=== PATIENT | male | born 1975 | race Asian ===

== ENCOUNTER → 2016-05-03 | Day surgery (SDC) | payer OTHER ==
[~2016-05-03] VITALS: Ht 154.9 cm; Wt 52.7 kg
[~2016-05-03] MED LIST: PROPOFOL 40 ML ONE; ZOC10 PO
[2016-05-03 14:36] VITALS: Ht 154.9 cm; Wt 52.7 kg
[2016-05-03 15:12] VITALS: BP 132/77; PULSE 79; RESP 16
[2016-05-03 15:55] VITALS: BP 108/64; PULSE 81; RESP 16
[2016-05-03 16:33] VITALS: BP 134/88; PULSE 71; RESP 18
--- NOTE | 2016-05-04 15:23 | GILP ---
DATE OF PROCEDURE: 05/04/2016 PROCEDURE: Colonoscopy with polyp ablation. PREMEDICATION: Monitored anesthesia care by anesthesiologist. SURGEON: Sridevi Hyatt MD. INSTRUMENT USED: Olympus colonoscope. PREPARATION: Adequate. TECHNIQUE: After informed consent, with the patient/relatives understanding the procedure, its indic ations potential risks and complications, including but not limited to: allergic reaction, bleeding, perforation, infection, missed lesions and after all pertinent questions were answered to the patie nt's satisfaction, the patient/relatives signed the witnessed informed consent. Following this, premedication was administered slowly IV push by under careful cardiovascular and re spiratory monitoring with pulse oximetry, automatic blood pressure and electronic device monitor. Once the sedativ e effect was achieved, the patient was placed in the left lateral decubitus position, digital rectal examination was performed. The colonoscope was then introduced and advanced under visual control th roughout all segments of the colon including: the rectum, sigmoid, descending colon, splenic flexure , transverse colon, hepatic flexure, ascending colon and finally reaching the cecum which was clearl y identified by transillumination, finger indentation and the ileocecal valve. Careful examination o f the mucosa of the lower gastrointestinal tract both on insertion as well as withdrawal of the inst rument disclosed the following findings: Rectal Examination: No evidence of perirectal disease, no masses. Colonic Mucosa: The colonic mucosa is remarkable for the presence of a 3 mm polyp in the transvers e colon which was completely ablated with biopsy forceps. There is a 4 mm polyp in the proximal asc ending colon which was also ablated with biopsy forceps. The remainder of the colon and mucosa unre markable. The ileocecal valve was clearly identified and appears unremarkable. The instrument was then withdrawn. We reexamined the mucosa in detail and no additional abnormalities were noted with the exception of moderate sized internal hemorrhoids. IMPRESSION: 1. A 3 mm polyp in the transverse colon ablated. 2. A 4 mm polyp in the proximal ascending colon ablated. 3. Moderate size internal hemorrhoids. PLAN: The patient will be followed up as an outpatient. Pathology will be reviewed surveillance co lonoscopy in 5 years is recommended. Annual Hemoccult stool testing is also recommended. Dictated By: SRIDEVI HYATT MS/KAHLIL Conf#: [id number] DID#: [id number]
--- NOTE | 2016-05-04 15:32 | GILP ---
DATE OF PROCEDURE: 05/04/2016 PROCEDURE: Esophagogastroduodenoscopy with biopsies. SURGEON: Sridevi Hyatt MD BRIEF HISTORY AND INDICATIONS: The patient is being evaluated for dyspepsia and complaints of abdom inal pain. PREMEDICATION: Monitored anesthesia care by anesthesiologist. INSTRUMENT USED: Olympus panendoscope. TECHNIQUE: After informed consent, with the patient/relatives understanding the procedure, its indic ations, potential risks and complications, including but not limited to: allergic reaction, bleeding , perforation or infection, and after all pertinent questions were answered to the patients satisfac tion, the patient/relatives signed witnessed informed consent. Following this, premedication was ad ministered slowly IV push under careful cardiovascular and respiratory monitoring with pulse oximetr y, automatic blood pressure and monitoring manager. Once the sedative effect was achieved the patient was place in the left lateral decubitus, the panendoscope was introduced and advanced under visual contr ol. Careful examination of the upper gastrointestinal tract, both on insertion as well as withdrawal of the instrument disclosed the following findings: ESOPHAGUS: The mucosa of the entire esophagus appears within normal limits. There is no evidence of esophagitis, varices, neoplasm or stricture. No hiatal hernia identified. STOMACH: Upon entrance to the stomach, air was insufflated, the gastric berry distended normally. There is erythema and edema of the mucosa of a moderate degree. Biopsies were obtained to rule out H. pylori infection. PYLORUS: The pylorus appears patent and within normal limits, with no evidence of gastric outlet obs truction. DUODENUM: The duodenal mucosa was carefully examined in the duodenal bulb as well as the second port ion of the duodenum and appears unremarkable with no evidence of duodenitis, ulcer or neoplasm. The instrument was then withdrawn, the patient tolerated the procedure well and was transfer out of the endoscopy suite awake, and in good condition to continue recovery under observation IMPRESSION: Gastritis, rule out Helicobacter pylori infection, biopsies obtained. PLAN: The patient will be treated with PPIs. Pathology will be reviewed as soon as available. Fur ther recommendation will depend on the patient's clinical course as well as review of pathology. Dictated By: SRIDEVI HYATT MS/NTS Conf#: [id number] DID#: [id number] CC: SRIDEVI HYATT;*EndCC*
== END | disposition home or self-care (01) ==
LOC: GIL 13:16
PROVIDERS: ATTEND Internal Medicine Gastroenterology
DX: Z12.11 Encounter for screening for malignant neoplasm of colon (principal); K29.30 Chronic superficial gastritis without bleeding; D12.2 Benign neoplasm of ascending colon; D12.3 Benign neoplasm of transverse colon; K64.4 Residual hemorrhoidal skin tags; Q90.9 Down syndrome, unspecified
CPT/HCPCS: 43239; 45380; 88305; 88312; Z7610